=== PATIENT | female | born 1960 | race Caucasian/White ===

== ENCOUNTER 2024-11-17 09:17 | Outpatient (CLI) | payer MEDICARE, SELFPAY ==
--- NOTE | 2024-11-17 09:23 | MR_ITS ---
WS: [id number] MRI LUMBAR SPINE NONCONTRAST HISTORY: SPONDYLOSIS W/O MYELOPATHY OR RADICULOPATHY, LSPINE REGION, RIGHT lower extremity radiculopathy. COMPARISON: None available. TECHNIQUE: Sagittal and axial multisequence imaging is submitted. Mild increase in the lumbar lordosis. Posterior lumbar alignment is normal. Disc spaces and vertebral body heights are well-preserved. Conus terminates normally at L1. L1-L2: Mild bilateral facet arthritis. No stenosis. L2-L3: Mild facet arthritis. No stenosis. L3-L4: Mild disc bulging with moderate ligamentum flavum and bilateral facet arthritis. Mild central stenosis. No foraminal stenosis. L4-L5: Mild annular disc bulge with a shallow central and LEFT foraminal disc protrusions. Bilateral facet joint arthropathy and ligamentum flavum hypertrophy mild central stenosis. Very slight encroachment upon the traversing LEFT L5 nerve root. L5-S1: Mild annular disc bulging. Very small foraminal osteophytes. There is mild disc contact on the S1 nerve roots bilaterally without displacement. Paravertebral soft tissues are negative. Small follicles associated with the LEFT ovary. MR/MR lumbar spine wo con* [id number] IMPRESSION: 1. Mild increase in lumbar lordosis. 2. No high-grade central or foraminal stenosis. 3. Mild disc bulging at L5-S1 with contact on the S1 nerve roots. 4. L4-5: Shallow central and LEFT foraminal disc protrusions. Bilateral facet arthritis and ligamentum flavum hypertrophy contributing to mild central stenos is. There is mild disc osteophyte encroachment upon the traversing LEFT L5 nerv e root. 5. Mild central stenosis at L3-4.
== END 2024-11-17 09:18 | disposition home or self-care (01) ==
PROVIDERS: PCP Family Medicine; Visit Provider Anesthesiology
DX: M47.816 Spondylosis without myelopathy or radiculopathy, lumbar region (principal); M41.9 Scoliosis, unspecified; M46.1 Sacroiliitis, not elsewhere classified; M51.379 Other intervertebral disc degeneration, lumbosacral region without mention of lumbar back pain or lower extremity pain; M51.26 Other intervertebral disc displacement, lumbar region; M25.78 Osteophyte, vertebrae
CPT/HCPCS: 72148

== ENCOUNTER 2024-12-06 11:12 | Emergency (ER) | payer MEDICARE, SELFPAY ==
[2024-12-06 11:13] VITALS: BP 115/54; PULSE 94; TEMP 36.7; O2SAT 94; BMI 25.9
--- OUTSIDE RECORDS SUMMARY | 2024-12-06 11:17 | XMS_ITS | Patient Health Record ---
Author Organization [facility] Address [address] [place], [place] [address] Care Team Providers Care Green Jobs Trainer Name Role Phone Bethany Nixon MD Primary Care Provider Unavailanish Fabian MD, Ruben Unavailable [phone] Juan Barber MD Unavailable Unavailable Angel ROMEROP, Taylor Unavailable [phone] Allergies No Known Allergies Results Component Value Reference Range Notes Urine tox screen / MS if ind icated Reviewed date:04/20/2024 11:09:34 AM Interpretation:Consistent Performing Lab: Notes/Report: Consistent Reason For Referral Reason Evaluation for possi ble treatment (clinic closing due to provider's longterm) Diagnosis 1 Vertebrogenic low ba ck pain (M54.51) Diagnosis 2 Spondylosis without myelopathy or radiculopathy, lumbar region (M47.816) Diagnosis 3 Sacroiliitis, not el sewhere classified (M46.1) Referral Organization [facility] Referring Provider First Name Ruben Referring Provider Last Name Rui Referring Provider Speciality Pain Manag ement Referred Provider Zach Ocampo Referred Provider Specialty Anesthesiolo gy General Notes Sammie Farrell 10:40:06 AM >FAXED TODAY. Referral Priority Routine Referral Appointment Date 10/31/2024 Medications Medication SIG (Take, Route, Frequency, Duration) Notes Start Date End Date Status Narcan 4 mg/0.1 mL as directed intranasally once 08/03/2019 Active omeprazole 20 mg 1 cap orally once a day Active Ventolin HFA 90 mcg/inh 2 puffs inhaled 4 times a day Active oxyCODONE 10 mg 1-2 tabs orally Q4-6 H prn pain (max 6/day; hold within 4H of planned sleep) for 28 days ICD-10: G89.29 10/05/2024 Active atorvastatin 10 mg 1 tab(s) orally once a day for 30 day(s) Active oxyCODONE 10 mg 1-2 tabs orally Q4-6 H prn pain (max 6/day; hold within 4H of planned sleep) for 28 days Do not fill prior to 11/02/24. ICD-10: G89.29 10/05/2024 Active oxyCODONE 10 mg 1-2 tabs orally Q4-6 H prn pain (max 6/day; hold within 4H of planned sleep) for 28 days Do not fill prior to 11/30/24. ICD-10: G89.29 10/05/2024 Active Social History Tobacco Use: Social History Observation Description Date Details (start date - stop date) Former Smoker NA - NA Tobacco use: Question Answer Notes : former smoker When did you stop smoking? 12/01 AUDIT-C (Standard) Question Answer Notes Did you have a drink containing alcohol in the p ast year? 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) Active confirmed Problem Hypersomnia (89640343) Hypersomnia, unspecified (G47.10) Active confirmed Problem Sleep disorder (06545305) Other sleep disorders (G47.8) Active confirmed Problem Chronic pain (15401394) Other chronic pain (G89.29) Active confirmed Problem 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, 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) Active confirmed Problem Long-term current use of drug therapy (956057111) Other rn long term care (current) drug therapy (Z79.899) Active confirmed Problem Pain in lumbar spine (397369680) Vertebrogenic low back pain (M54.51) Active confirmed Vital Signs Temperature 94.3 degrees Fahrenheit 10/05/2024 Oximetry 96 % 10/05/2024 Blood pressure diastolic 82 mm Hg 10/05/2024 Height 62 in 10/05/2024 Blood pressure systolic 117 mm Hg 10/05/2024 Weight 131.2 lbs 10/05/2024 BMI 23.99 kg/m2 10/05/2024 Encounters Encounter Location Date Provider Diagnosis [facility] [address] [place], [place] [id number] 12/30/2023 Taylor Ortiz Vertebrogenic low ba ck pain M54.51 ; Other chronic pain G89.29 and Other sleep disorders G47.8 [facility] [address] [place], [place] [id number] 02/24/2024 Taylor Ortiz Vertebrogenic low ba ck pain M54.51 ; Other chronic pain G89.29 and Other sleep disorders G47.8 [facility] [address] [place], [place] [id number] 04/20/2024 Ruben Fabian Vertebrogenic low ba ck pain M54.51 ; Other chronic pain G89.29 ; Other sleep disorders G47.8 and exterminator (current) use of opiate analgesic Z79.891 [facility] [address] [place], [place] [id number] 06/15/2024 Ruben Fabian Vertebrogenic low ba ck pain M54.51 ; Other chronic pain G89.29 and Other sleep disorders G47.8 [facility] [address] [place], [place] [id number] 08/10/2024 Ruben Fabian Vertebrogenic low ba ck pain M54.51 ; Other chronic pain G89.29 and Other sleep disorders G47.8 [facility] [address] [place], [place] [id number] 10/05/2024 Ruben Fabian Vertebrogenic low ba ck pain M54.51 ; Other chronic pain G89.29 and Other sleep disorders G47.8 [facility] [address] [place], [place] [id number] 10/10/2024 Ruben Fabian Assessments Encounter Date Diagnosis (ICD Code) Assessment Notes Treatment Notes Treatment Clinical Notes Section Notes 12/30/2023 Vertebrogenic low back pain (ICD-10 - M54.51) Chronic axial lumbosacral spine pain. 02/24/2024 Vertebrogenic low back pain (ICD-10 - M54.51) Chronic axial lumbosacral spine pain. 04/20/2024 Other chronic pain (ICD-10 - G89.29) Patient reports that taking her pain medication allows her to move furniture and prepare for the holiday season. Plan to continue oral opioid medication management. 04/20/2024 Vertebrogenic low back pain (ICD-10 - M54.51) Chronic axial lumbosacral spine pain. 06/15/2024 Other chronic pain (ICD-10 - G89.29) Patient reports that taking her pain medication allows her to spend more time with her grandkids. Plan to continue oral opioid medication management. 06/15/2024 Vertebrogenic low back pain (ICD-10 - M54.51) Chronic axial lumbosacral spine pain. 10/05/2024 Vertebrogenic low back pain (ICD-10 - M54.51) Chronic axial lumbosacral spine pain. 08/10/2024 Vertebrogenic low back pain (ICD-10 - M54.51) Chronic axial lumbosacral spine pain. 08/10/2024 Other chronic pain (ICD-10 - G89.29) Patient reports that taking her pain medication allows her to start light yard work. Plan to continue oral opioid medication management. 10/05/2024 Other chronic pain (ICD-10 - G89.29) Patient reports that taking her pain medication allows her to work in her flower beds. Plan to continue oral opioid medication at today's visit. 06/15/2024 Other sleep disorders (ICD-10 - G47.8) Plan to continue to restrict opioid use in relation to sleep for safety concerns. 04/20/2024 Other sleep disorders (ICD-10 - G47.8) Plan to continue to restrict opioid use in relation to sleep for safety concerns. 02/24/2024 Other sleep disorders (ICD-10 - G47.8) Plan to continue to restrict opioid use in relation to sleep for safety concerns. 02/24/2024 Other chronic pain (ICD-10 - G89.29) Patient reports that taking her pain medication allows her to work in her yard. Plan to continue oral opioid medication management. 12/30/2023 Other sleep disorders (ICD-10 - G47.8) Patient declined prior offer for a sleep study and possible treatment; plan to continue to restrict opioid use in relation to sleep for safety concerns. 12/30/2023 Other chronic pain (ICD-10 - G89.29) Patient reports that taking her pain medication allows her to care for grandchildren and great grandchild. Plan to continue oral opioid medication management. 04/20/2024 exterminator (current) use of opiate analgesic (ICD-10 - Z79.891) 2022 opioid (OUD) risk tool score = 0. This places the patient in the low risk category. Plan urine toxicology screen today to monitor for presence of any unprescribed or illicit controlled substance(s), as well as prescribed oxycodone. 10/05/2024 Other sleep disorders (ICD-10 - G47.8) Plan to continue to restrict opioid use in relation to sleep for safety concerns. 08/10/2024 Other sleep disorders (ICD-10 - G47.8) Plan to continue to restrict opioid use in relation to sleep for safety concerns. 04/20/2024 Other The service was provided by [facility], as part of the ongoing care plan established by Ruben Fabian MD, who was present in the office for direct supervision during the encounter. 08/10/2024 Other The service was provided by [facility], as part of the ongoing care plan established by Ruben Fabian MD, who was present in the office for direct supervision during the encounter. 10/05/2024 Other The service was provided by [facility], as part of the ongoing care plan established by Ruben Fabian MD, who was present in the office for direct supervision during the encounter. Patient was provided with a letter at today's visit informing patient that this clinic is closing due to Dr. Fabian's longterm; see scanned document. Terminal prescriptions were given to the patient along with tapering instructions. 06/15/2024 Other The service was provided by [facility], as part of the ongoing care plan established by Ruben Fabian MD, who was present in the office for direct supervision during the encounter. 12/30/2023 Other 02/24/2024 Other Plan Of Treatment No Information Insurance Providers Payer Name Payer Address Payer Phone Subscriber Number Group Number Insured Name Patient Relationship to Insured Coverage Start Date Coverage End Date [employer] [address] [address] [place] [address] [id number] Radha Rogers Self - patient is the insured [place] [employer] [place] [address] [address] [place] [address] [phone] [id number] Radha Rogers Self - patient is the insured Medical (General) History Medical History History ICD Code Chronic pain Low back pain Lumbar spondylosis Sacroiliitis Scoliosis Mid back pain Migraine headaches Depression Superficial phlebitis and th rombophlebitis of right lower extremity (history of blood clot in right lower extremity) COPD suspected (history of tobacco use a nd albuterol inhaler use) Sleep disorder, history of p oor sleep and hypersomnia (patient declined prior offer for a sleep study and possible treatment) Surgical History Surgery Date(Month/Year) Right foot surgery, 2007 Tonsillectomy Tubal ligation Hospitalization History Reason Date(Month/Year) Child x 3
--- OUTSIDE RECORDS SUMMARY | 2024-12-06 11:17 | XMS_ITS | Patient Health Record ---
Author Organization [facility] Address [address] [place] [address] Support Name Relationship Address Phone Sierra, Radha Guarantor Unknown [phone] Reason For Referral No Information Medications Medication SIG (Take, Route, Frequency, Duration) Notes Start Date End Date Status Omeprazole 20 MG 1 capsule 30 minutes before morning meal Orally Once a day Active Trelegy Ellipta 100-62.5-25 MCG/INH 1 puff Inhalation Once a day Active Ventolin HFA 108 (90 Base) MCG/ACT 1 puff as needed Inhalation every 4 hrs Active oxyCODONE HCl 10 MG 1 tablet as needed O rally every 6 hrs Active Problems Problem Type SNOMED Code ICD Code Onset Dates Problem Status W/U Status Risk Notes Problem Shortness of breath (424706183) Shortness of breath (R06.02) Active confirmed [id number]- Problem Electrocardiogram abnormal (351298153) Abnormal electrocardiogram [ECG] [EKG] (R94.31) Active confirmed [id number] 3-Snomed Descriptio n:Electroc ardiogram abnormal Problem Ventricular premature depolarization (184702309) Ventricular premature depolarization (I49.3) Active confirmed [id number] 3-Snomed Descriptio n:Ventricu lar premature complex Plan Of Treatment No Information Medical (General) History Medical History History ICD Code SOB, chronic pain, depression Surgical History Surgery Date(Month/Year) T&A, bone spur on foot, cataract surgery
--- NOTE | 2024-12-06 11:25 | XR_ITS ---
WS: [id number] Exam: XR wrist RT min 3V* [id number] Date/Time of Exam: 12/06/2024 11:26 AM Reason For Exam: injury No fracture noted. Minimal degenerative change of the radiocarpal joint. Normal soft tissues. XR/XR wrist RT min 3V* [id number] IMPRESSION: 1. No acute fracture.
--- NOTE | 2024-12-06 11:46 | W.ED.HEATRA ---
HPI - Head Injury General: Chief complaint: Head Injury Stated complaint: fall Time Seen by Provider: 12/06/24 11:29 Source: patient Mode of arrival: ambulatory Limitations: no limitations History of Present Illness: 64-year-old female states she is at [facility] prior to arrival and had tripped and fell. She hit her nose along with a right wrist on the ground she had a nosebleed has since stopped she complains of some nasal pain denies hitting her head denies any loss of consciousness denies any neck pain. Associated symptoms: Deny nausea, neck pain or vomiting Related Data Allergies Allergy/AdvReac Type Severity Reaction Status Date / Time No Known Allergies Allergy Verified 12/06/24 11:22 Review of Systems Const: Denies: fever(s), chills, body aches or change in appetite Eyes: Denies: blurry vision or eye discomfort ENMT: Reports: epistaxis; Denies: throat pain or dental pain Card: Denies: chest pain Resp: Denies: dyspnea GI: Denies: abdominal pain, nausea, vomiting or diarrhea Musc: Reports: extremity pain; Denies: neck pain or back pain Skin/Breast: Denies: rash Neuro: Denies: headache(s) Physical Exam Const: COMMON NORMALS: no acute distress, patient oriented x3 and healthy appearing HENMT: COMMON NORMALS: normocephalic and atraumatic HEAD & SCALP: normocephalic and atraumatic OTHER: Abrasion noted to nose no nosebleed at this time some swelling to her nose no obvious deformities Eye: COMMON NORMALS: Equal, round and reactive pupils present and EOMs intact bilaterally PUPIL: Yes Equal, round and reactive pupils present Neck/C-Spine: COMMON NORMALS: full ROM and supple Chest: COMMONS NORMALS: normal inspection of the chest Resp: COMMON NORMALS: normal respiratory effort, No retractions, No use of accessory muscles and clear to auscultation bilaterally AUSCULTATION: clear to auscultation bilaterally Cardio: COMMON NORMALS: regular rate, regular rhythm and No murmurs present (Cardio) RATE: regular rate RHYTHM: regular rhythm Extremity: COMMON NORMALS: full ROM NARRATIVE EXTREMITY EXAM: Slight tenderness right wrist no obvious deformity Neuro: COMMON NORMALS: patient oriented x3, moves all extremities and no focal motor deficits Psych: COMMON NORMALS: mental status grossly normal, Normal thought process present and cooperative THOUGHT PROCESS: Normal thought process present Skin: COMMON NORMALS: no rashes or lesions noted and no wounds GENERAL SKIN EXAM: no rashes or lesions noted Course Vital Signs: Vital signs: Vital Signs Temperature 98.0 F 12/06/24 11:13 Pulse Rate 94 12/06/24 11:13 Blood Pressure 115/54 12/06/24 11:13 Pulse Oximetry 94 12/06/24 11:13 Oxygen Delivery Me thod Room Air 12/06/24 11:13 MDM - Head Injury Medcial Decision Making Patient presents here after a fall no signs of intracranial injury. Does have an nasal contusion with some swelling no signs of displaced fracture x-ray wrist is normal she is follow-up with her PCP return if worsening. Medical Records I reviewed the patient's medical records. Lab Data Radiology Impressions Wrist X-Ray 12/06/24 11:25 IMPRESSION: 1. No acute fracture. All radiology interpretation(s) finalized by discharge Discharge Plan Discharge Patient Disposition: Home Clinical Impression: Injury of nose, Fall, Right wrist sprain Condition: Stable Discharge Orders: Discharge ED (Routine); Ordered 12/06/24 Ordered By: Anant Wilson Referrals: Bethany Nixon MD [Primary Care Provider, Unknown] - 4-7 days Discharge Diet: Advance as tolerated Discharge Activity: Resume usual activity Patient Instructions: Nasal Contusion (ED) Print Language: Thai Coding Level of Care Code ED Library Circulation Department Chief for Corina Dixon
[2024-12-06] MEDS: HYDROcodone-acetaminophen 5-325 mg Tablet 1 TAB PO (12:06)
[2024-12-06 12:09] VITALS: PULSE 94; RESP 16; O2SAT 96
== END 2024-12-06 12:01 | disposition home or self-care (01) ==
PROVIDERS: Emergency Provider Emergency Medicine; PCP Family Medicine
DX: S09.92XA Unspecified injury of nose, initial encounter (principal); S63.501A Unspecified sprain of right wrist, initial encounter; W19.XXXA Unspecified fall, initial encounter
CPT/HCPCS: 73110; 99283; J9999

== ENCOUNTER → 2025-05-02 09:16 | Outpatient (BNVA) | payer MEDICARE, SELFPAY | PROVIDERS: PCP Family Medicine; Referring Provider Family Medicine; Visit Provider Nurse Practitioner Family | DX: L40.0 Psoriasis vulgaris (principal); L57.8 Other skin changes due to chronic exposure to nonionizing radiation; L30.9 Dermatitis, unspecified | CPT/HCPCS: 11104; 99204 ==

== ENCOUNTER → 2025-05-15 10:58 | Outpatient (BNVA) | payer MEDICARE, SELFPAY | PROVIDERS: PCP Family Medicine; Referring Provider Family Medicine; Visit Provider Nurse Practitioner Family | DX: L20.89 Other atopic dermatitis (principal); Z48.02 Encounter for removal of sutures | CPT/HCPCS: 99213 ==